=== PATIENT | male | born 1950 | race Caucasian/White ===

== ENCOUNTER 2017-03-15 19:39 | Emergency (ER) | payer OTHER ==
--- NOTE | 2017-03-15 20:25 | DIAGNOSTIC IMAGING REPORT ---
PROCEDURE: XR CHEST 1 VIEW INDICATION: Short of breath. TECHNIQUE: Portable AP view (2010 hours). COMPARISON: None. FINDINGS: Allowing for suboptimal inspiration, there is mild volume loss and parenchymal changes at the right lung base. There is a 6 mm old calcified granuloma the right mid lung. Left lung is clear. Heart and mediastinum are normal. Thorax is normal. IMPRESSION: 1. There is mild volume loss and parenchymal changes at the right lung could represent chronic scarring or acute pneumonia. 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 3. Otherwise negative chest. No evidence of congestive heart failure. 4. Findings discussed with Dr. Roger Prasad.
--- NOTE | 2017-03-15 23:18 | ED CLINICAL REPORT ---
Clinical Report - Physicians/Mid Levels [facility] [address] [place] [address] 03/15/2017 19:41 Patient: ELI HOFFMAN Time Seen: 1942; initial patient contact. Arrived- By ambulance. Historian- patient, EMS personnel and family. HISTORY OF PRESENT ILLNESS Chief Complaint: diaphoresis. At its maximum, severity described as severe. When seen in the E.D., it was gone. Modifying factors. Not worsened by anything. Not relieved by anything. This started today. It was abrupt in onset and has been constant but is gone now. Is now gone. No current or associated symptoms. (reports diaphoresis, fatigue, and generalized weakness during dinner. states he has had that for the past few weeks. recently diagnosed with CHF. Placed on lasix 40 mg and carvedilol 25 mg. states he started taking them today. EMS reports BP of 80/40s). Similar symptoms previously: Many times. Recent medical care: The patient was seen recently in a clinic. REVIEW OF SYSTEMS No fever, cough, difficulty breathing, chest pain or skin rash. No back pain, calf pain or headache. All systems otherwise negative, except as recorded above. PAST HISTORY Hyperlipidemia. Blindness. Neuropathy. Hypertension. Diabetes Mellitus. ADDITIONAL SURGERIES: Back Surgery. Ear surgery. Medications: Carvedilol Phosphate ER Oral (Capsule Extended Release 24 Hour 10 mg) 25mg, daily. Furosemide Oral (Tablet 40 mg), daily. Glipizide Oral (Tablet 5 mg), daily. Better melon gold. Lisinopril Oral (Tablet 10 mg), 2x a day. Omeprazole Oral (Tablet Delayed Release 20 mg), daily. Simvastatin Oral (Tablet 40 mg), daily. Atenolol Oral (Tablet 100 mg), daily. Allergies: None. SOCIAL HISTORY Never smoker. No alcohol use or drug use. No recent travel. Is a local resident. ADDITIONAL NOTES The nursing notes have been reviewed. PHYSICAL EXAM Vital Signs: 03/15/2017 19:44 BP: 111/58. HR: 61. RR: 15. O2 saturation: 98%. Temp: 97.7 F. Pain level now: 0/10. Blood pressure normal. Oxygen saturation normal. Appearance: Alert. No acute distress. (pleasant, cooperative, polite.). Neck: Normal inspection. Neck supple. No JVD. CVS: Normal heart rate and rhythm. Heart sounds normal. Pulses normal. Respiratory: No respiratory distress. Breath sounds normal. Chest nontender. No rales, rhonchi or wheezes. Abdomen: No visible injury. Soft and nontender. Bowel sounds normal. Skin: Skin warm and dry. Normal skin color. No rash. Normal skin turgor. Extremities: Extremities exhibit normal ROM. No lower extremity edema. LABS, X-RAYS, AND EKG EKG: No acute process. No acute ischemia. Normal EKG. Normal sinus rhythm. Rate: 60. Normal P waves. Normal JEFF. Normal QRS complex. Normal axis. Normal ST and T waves, QT and QTc. The study has been interpreted contemporaneously. The study has been independently viewed by me. The EKG appears to be a good tracing. Chest X-ray: (PROCEDURE: XR CHEST 1 VIEW INDICATION: Short of breath. TECHNIQUE: Portable AP view (2010 hours). COMPARISON: None. FINDINGS: Allowing for suboptimal inspiration, there is mild volume loss and parenchymal changes at the right lung base. There is a 6 mm old calcified granuloma the right mid lung. Left lung is clear. Heart and mediastinum are normal. Thorax is normal. IMPRESSION: 1. There is mild volume loss and parenchymal changes at the right lung could represent chronic scarring or acute pneumonia. 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 3. Otherwise negative chest. No evidence of congestive heart failure.). Laboratory Tests: UA-Culture if indicated: (MIGUEL ANGEL: 03/15/2017 20:30) ( MsgRcvd 03/15/2017 21:17) Final results Test Result Flag Units (Reference) URINE COLOR YELLOW URINE APPEARANCE CLEAR URINE GLUCOSE NEGATIVE (NEGATIVE) URINE BILIRUBIN NEGATIVE (NEGATIVE) URINE KETONE NEGATIVE (NEGATIVE) URINE SPECIFIC GRAVITY 1.010 (1.010-1.030) URINE PH 5.5 (5.0-8.0) URINE PROTEIN NEGATIVE (NEGATIVE) URINE UROBILINOGEN 0.2 EU/dL (0.2-1.0) URINE NITRITE NEGATIVE (NEGATIVE) URINE BLOOD NEGATIVE (NEGATIVE) URINE LEUK ESTERASE NEGATIVE (NEGATIVE) URINE RBC RARE rbc/hpf (0-1) URINE WBC 0-1 wbc/hpf (0-1) URINE EPITHELIAL CELLS RARE EPI/hpf (0-5) URINE BACTERIA NONE SEEN (NONE SEEN) URINE COMMENT CULT NOT INDICATED 0-1 HYALINE CASTURINE CULTURES ARE SET-UP BASED ON THE FOLLOWING CRITERIA:POSITIVE NITRITEPOSITIVE LEUKOCYTE ESTERASEGREATER THAN 10 WHITE BLOOD CELLSMODERATE (2+) OR GREATER BACTERIA CBC w Diff: (MIGUEL ANGEL: 03/15/2017 20:00) ( [facility] 03/15/2017 21:25) Final results Test Result Flag Units (Reference) WHITE BLOOD COUNT 8.6 K/uL (4.5-11.5) RED BLOOD COUNT 4.78 M/uL (4.50-5.90) HEMOGLOBIN 14.9 gm/dL (13.5-17.5) HEMATOCRIT 43.7 % (41.0-53.0) MEAN CELL VOLUME 91 fL (80-100) MEAN CORPUSCULAR HGB 31 pg (26-34) MEAN CORPUSCULAR HGB CONC 34 g/dL (31-37) RED CELL DISTRIBUTION WIDTH 12.8 % (11.6-14.8) PLATELET COUNT 92 L K/uL (150-400) NEUTROPHIL % 57.5 % (50-75) LYMPH % 33.0 % (25-40) MONO % 8.0 % (3-14) EOSINOPHIL % 1.0 % (0-4) BASOPHIL % 0.5 % (0-2) RBC MORPHOLOGY ... Platelets decreased per smear review.FEW LARGE PLATELETS PT with INR: (MIGUEL ANGEL: 03/15/2017 20:00) ( [facility] 03/15/2017 20:31) Final results Test Result Flag Units (Reference) INR 1.0 (0.8-1.2) Low Intensity Therapy: INR 1.5-2.0 PT range 18.5-23.1Mod.Intensity Therapy: INR 2.0-3.0 PT range 23.1-31.5High Intensity Therapy: INR 2.5-3.5 PT range 27.4-35.5High Intensity Therapy 2: INR 3.0-4.0 PT range 31.5-39.3 Troponin-I: (MIGUEL ANGEL: 03/15/2017 22:00) ( [facility] 03/15/[facility] 22:30) Final results Test Result Flag Units (Reference) TROPONIN I <0.05 L ng/mL (0.00-1.5) TROPONIN REFERENCE RANGE:<0.1 NEGATIVE0.1-1.5 INDETERMINANT>1.5 POSITIVE BNP: (MIGUEL ANGEL: 03/15/2017 20:00) ( IlgRcvd 03/15/2017 20:34) Final results Test Result Flag Units (Reference) B-TYPE NATRIURETIC PEPTIDE 122 H pg/ml (5-100) CMP: (MIGUEL ANGEL: 03/15/2017 20:00) ( [facility] 03/15/2017 20:24) Final results Test Result Flag Units (Reference) GLUCOSE 229 H mg/dL (70-110) BUN 30 H mg/dL (7-18) CREATININE 2.1 H mg/dL (0.6-1.3) Estimated GFR 33.55 mL/min Estimated GFR- 40.66 mL/min Note: Persistent reduction over 3 months in eGFR<60 mL/min/1.73 m2 defines CKD. Patients with eGFR values>=60 mL/min/1.73 m2 may also have CKD if evidence ofpersistent proteinuria. Additional information may be foundat www.kidney.org. SODIUM 140 mmol/L (136-145) POTASSIUM 4.7 mmol/L (3.5-5.1) CHLORIDE 107 mmol/L (98-107) CARBON DIOXIDE 26 mmol/L (21-32) CALCIUM 8.3 L mg/dL (8.5-10.1) TOTAL PROTEIN 5.8 L g/dL (6.4-8.2) ALBUMIN 3.1 L g/dL (3.3-5.0) BILIRUBIN, TOTAL 0.4 mg/dL (0.0-1.0) ALKALINE PHOSPHATASE 64 U/L (46-116) AST (SGOT) 16 U/L (15-37) ALT (SGPT) 33 U/L (12-78) TROPONIN I <0.05 L ng/mL (0.00-1.5) TROPONIN REFERENCE RANGE:<0.1 NEGATIVE0.1-1.5 INDETERMINANT>1.5 POSITIVE . PROGRESS AND PROCEDURES Course of Care: patient not a very reliable historian. after reviewing results states he also had a productive cough. will treat for pneumonia. 2nd trop pending. 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 States he does not think they work there anymore. 23:13 03/15/17. Pt accepted from Dr. Prasad, H&P confirmed by myself. BP much better, not hypoxic, and 2nd Troponin neg. Pt is appropriate for outpt Tx. Disposition: Discharged home in good and improved condition. Condition: good. CLINICAL IMPRESSION Bacterial and lobar pneumonia. Vital signs recorded and reviewed; empiric antibiotics given in the ED and prescribed. No hypoxemia, respiratory failure or sepsis. INSTRUCTIONS Rest at home today and tomorrow. Your Current Medications: STOP TAKING THE FOLLOWING MEDICATIONS: Carvedilol Phosphate ER Oral : Capsule Extended Release 24 Hour 10 mg, 25mg daily. Furosemide Oral : Tablet 40 mg, daily. CONTINUE TAKING THE FOLLOWING MEDICATIONS: Atenolol Oral : Tablet 100 mg, daily. Better melon gold*. Glipizide Oral : Tablet 5 mg, daily. Lisinopril Oral : Tablet 10 mg, 2x a day. Omeprazole Oral : Tablet Delayed Release 20 mg, daily. Simvastatin Oral : Tablet 40 mg, daily. Prescription Medications: Clarithromycin 500 mg tablets: take 1 tablet orally every 12 hours for 7 days. No refills. Follow-up: Follow up with your doctor in about three days. Call for an appointment. Blood pressure screening was not performed during this visit because the patient has an active diagnosis of hypertension. (Electronically signed by River Chappell Dr. 03/16/2017 7:56)
--- NOTE | 2017-03-15 23:18 | ED NURSING NOTES ---
Clinical Report - Nurses [facility] [address] [place] [address] 03/15/2017 19:41 [id number] Triage time 19:44 Mar 15 2017. Acuity: LEVEL 3. Chief Complaint: DIZZINESS and WEAKNESS. Alert. No acute distress. EDGARDO COMA SCORE: Edgardo Coma Scale: 15- eyes open spontaneously (4); best verbal response- oriented x 4 (5); best motor response- obeys commands (6). --19:57 Ashanti Mendez R.N. 19:44 03/15/17. BP: 111/58. HR: 61. RR: 15. O2 saturation: 98%. Temp: 97.7 F. Pain level now: 0/10. --19:57 Ashanti Mendez R.N. Weight: 99.7 kg stated. Height/Length: 69 inches Per Patient. BMI: 32.5. --19:54 Ashanti Mendez R.N. Medications Atenolol Oral (Tablet 100 mg), daily. --19:48 Ashanti Mendez R.N. Simvastatin Oral (Tablet 40 mg), daily. --19:48 Ashanti Mendez R.N. Omeprazole Oral (Tablet Delayed Release 20 mg), daily. --19:49 Ashanti Mendez R.N. Lisinopril Oral (Tablet 10 mg), 2x a day. --19:49 Ashanti Mendez R.N. Better melon gold. --19:49 Ashanti Mendez R.N. Glipizide Oral (Tablet 5 mg), daily. --19:50 Ashanti Mendez R.N. Furosemide Oral (Tablet 40 mg), daily. --19:50 Ashanti Mendez R.N. Carvedilol Phosphate ER Oral (Capsule Extended Release 24 Hour 10 mg) 25mg, daily. --19:51 Ashanti Mendez R.N. Allergies None. --19:51 Ashanti Mendez R.N. History Arrived by private vehicle. Historian: patient. Accompanied by family. This started just prior to arrival. ( diaphoretic, blurry vision). Treatment OFFICE MANAGER RECEPTIONIST: EMS treatment OFFICE MANAGER RECEPTIONIST verbally communicated. Pre-hospital 12-lead EKG. IV fluid given (500 mL bolus). BP: 80 / 40. HR: 60. PAST MEDICAL HX: Immunizations: status is unknown. SOCIAL HX: Never smoker. No alcohol use or drug use. No infectious disease exposure. SELF HARM ASSESSMENT: A self harm assessment was performed. The patient answered "no" to the question "Do you have thoughts of harming or killing yourself?" and "Have you recently had thoughts about harming or killing others?". FALL RISK ASSESSMENT: Fall risk assessment completed. No fall risk identified. NUTRITIONAL RISK ASSESSMENT: The nutritional risk assessment revealed no deficiencies. FUNCTIONAL ASSESSMENT: Functional assessment: no impairments noted. LEARNING NEEDS ASSESSMENT: The learning needs assessment revealed no barriers. ABUSE ASSESSMENT: Abuse assessment: The patient was asked "Do you feel safe in your home?". SKIN INTEGRITY ASSESSMENT: Skin integrity risk assessment completed. No skin integrity risk identified. --19:57 Ashanti Mendez R.N. PROBLEMS: Hyperlipidemia. Blindness. Neuropathy. Hypertension. Diabetes Mellitus. --19:53 Ashanti Mendez R.N. ADDITIONAL SURGERIES: Back Surgery. Ear surgery. --19:53 Ashanti Mendez R.N. Interventions ID band on patient. To room. --19:57 Ashanti Mendez R.N. 19:45 03/15/2017 Site #1 started prior to arrival by EMS via IV in the left hand with an 18g angiocath. --19:45 Ahsanti Mendez R.N. PHYSICAL ASSESSMENT To room via stretcher. GENERAL / NEURO / PSYCH: Alert. Oriented X 4. Appears in no acute distress. HEENT: No facial asymmetry noted. Mucous membranes are pink. RESPIRATORY: Respirations not labored. Chest nontender. CVS: Capillary refill less than 2 seconds. GI / : Abdomen soft and nontender. SKIN: Skin is warm and dry. --19:58 Ashanti Mendez R.N. NURSING PROGRESS NOTES Oxygen administered by nasal cannula at 2 liters. shelter monitor, pulse oximeter and NIBP monitor placed on patient; youth nutritional monitor- Lead II; monitor alarms on. Patient gowned. Head of bed elevated. Patient identifiers checked. Call light placed in reach. Side rails up x 1. Bed placed in lowest position. Brakes of bed on. --19:59 Ashanti Mendez R.N. Patient ID band checked for patient name and birthdate. Blood samples drawn by nurse ; labeled in presence of the patient and sent to lab: rainbow set. --20:00 Ashanti Mendez R.N. EKG time: (2003). EKG was ordered, performed by a tech and shown to the ED physician. --20:06 Reed Martinez, ER Foreign Service Officer Patient ID band checked for patient name and birthdate: patient confirmed. Instructions provided to collect clean catch urine and patient verbalized understanding. Clean catch urine collected with return of yellow-colored clear urine; sample sent to lab for urinalysis. Specimen labeled in the presence of the patient. --20:42 Ashanti Mendez R.N. 21:26 03/15/2017 Started 2 gm of Ceftriaxone IVPB in bag #1 50 mL; at 150 mL/hr over 20 minute(s) via site #1 via IV pump. Allergies verified and confirmed 5 rights. IV patency established. IV site checked: no pain, redness, or swelling. IV flushed thoroughly pre- and post-medication administration. --21:28 James Luna R.N. The patient is calm and resting quietly. RESPIRATORY: No respiratory distress. SKIN: Skin is warm and dry. Skin color within normal limits. --21:32 James Luna R.N. 21:31 03/15/17. BP: 100/55. HR: 59. RR: 16. O2 saturation: 95% on nasal cannula at 2 liters/minute. --21:32 James Luna R.N. 21:48 03/15/2017 Ceftriaxone IVPB Discontinued: bag #1 infused. Total amount infused: 50 mL. IV patency established. IV site checked: no pain, redness, or swelling. IV flushed thoroughly. --21:48 Ashanti Mendez R.N. 22:01 03/15/2017 Started 500 mg of Azithromycin IVPB in bag #1 250 mL; at 250 mg/hr over 1 hour(s) via site #1 via IV pump. Allergies verified and confirmed 5 rights. IV patency established. IV site checked: no pain, redness, or swelling. IV flushed thoroughly pre- and post-medication administration. --22:01 Ashanti Mendez R.N. The patient is calm and resting quietly. Overall patient status is the same- he states feels the same. RESPIRATORY: Denies difficulty breathing. No respiratory distress. SKIN: Skin is warm and dry. Skin color within normal limits. --22:02 Ashanti Mendez R.N. 21:48 03/15/17. BP: 92/52. HR: 58. RR: 17. O2 saturation: 96%. Pain level now: 0/10. --22:02 Ashanti Mendez R.N. DISPOSITION / DISCHARGE 23:28 03/15/2017 Azithromycin IVPB Discontinued: bag #1 infused upon discharge. Total amount infused: 250 mL. IV patency established. IV site checked: no pain, redness, or swelling. IV flushed thoroughly. --23:43 Ashanti Mendez R.N. 23:29 03/15/2017 Site #1 removed upon discharge. Bandage applied. --23:44 Ashanti Mendez R.N. Departure time: 23:30 Mar 15 2017. Condition at departure: improved. No learning barriers present. Discharge instructions provided and reviewed with the patient. Reviewed medication(s) side effects, precautions, dosing and course information. Prescription(s) given to the patient. Reviewed referral to a primary care physician for followup. Patient verbalized understanding. Written instructions provided in Lebanese. The patient was discharged home and accompanied by spouse. He left the Emergency Department ambulatory and via private vehicle. Spouse driving. FALL RISK ASSESSMENT: Fall risk assessment completed. No fall risk identified. --23:45 Ashanti Mendez R.N. 23:41 03/15/17. BP: 111/57. HR: 85. RR: 16. O2 saturation: 94%. Pain level now: 0/10. --23:45 Ashanti Mendez R.N. Locked/Released at 03/15/2017 23:46 by Ashanti Mendez R.N.
--- NOTE | 2017-03-15 23:18 | ED ORDER SUMMARY ---
..... Patient: ELI HOFFMAN OrderSheet [facility] VisitID: [id number] [place] [address] 66y, M Registration Date/Time: 03/15/2017 ORDER SHEET Weight: 99.7 kg (stated) Allergies: None GENERAL ORDERS: Chest 1V Urgent (19:52 03/15/2017 Kin Dias) (20:05 CH[facility]ty ER [facility]) Loan Interviewer (Continuous) (hypotension) (19:52 03/15/2017 Kin Dias) (20:05 CH[facility]ty ER [facility]) CBC w Diff Urgent (19:53 03/15/2017 Kin Dias) (Ack 20:06 CH[facility]ty ER [facility]) (20:07 CH[facility]ty ER [facility] [place]) CMP Urgent (19:53 03/15/2017 Kin Dias) (Ack 20:06 CH[facility]ty ER [facility] [place]) (20:07 CH[facility]ty ER [facility] [place]) UA-Culture if indicated Urgent (19:53 03/15/2017 Kin Dias) (Ack 20:06 CH[facility]ty ER [facility] [place]) (20:41 KKnebel R.N.) PT with INR Urgent (19:53 03/15/2017 Kin Dias) (Ack 20:06 CH[facility]ty ER [facility] [place]) (20:07 CH[facility]ty ER [facility] [place]) Troponin-I Urgent (19:53 03/15/2017 Kin Dias) (Ack 20:06 CHagerty ER [place]) (20:07 CHagerty ER [place]) BNP Urgent (19:53 03/15/2017 Kin Dias) (Ack 20:06 CHagerty ER [facility] [place]) (20:07 CHagerty ER [facility] [place]) Pulse oximeter (19:53 03/15/2017 Kin Dias) (20:05 CHagerty ER [place]) EKG - ER Stat (19:53 03/15/2017 Kin Dias) (20:05 CHagerty ER [place]) Troponin-I (redraw at 22:00) Urgent (21:16 03/15/2017 Kin Dias) (Ack 21:27 CHagerty ER [facility] [place]) (22:20 CHagerty ER [place]) MEDICATION ORDERS: IV FLUIDS: IV Saline Lock (19:53 03/15/2017 Kin Dias) (20:10 Saadia R.N.) Ceftriaxone IV 2 gm/50mL (NOW) (21:02 03/15/2017 Kin Dias) (Ack 21:23 JQuivey R.N.) (21:28 JQuivey R.N.) Azithromycin IV 500 mg/250 mL (NOW) (21:02 03/15/2017 Kin Dias) (22:01 Saadia R.N.) ORDER SHEET NOTES: [Electronically signed by Ashanti Mendez R.N. (23:46 03/15/2017)] [Electronically signed by River Chappell Dr. (07:56 03/16/2017)] [Electronically locked/signed by Ashanti Mendez R.N. (23:46 03/15/2017)]
--- NOTE | 2017-03-15 23:18 | ED NURSING NOTES ---
Clinical Report - Nurses [address] [place] [address] 03/15/2017 19:41 [id number] Triage time 19:44 Mar 15 2017. Acuity: LEVEL 3. Chief Complaint: DIZZINESS and WEAKNESS. Alert. No acute distress. EDGARDO COMA SCORE: Edgardo Coma Scale: 15- eyes open spontaneously (4); best verbal response- oriented x 4 (5); best motor response- obeys commands (6). --19:57 Ashanti Mendez R.N. 19:44 03/15/17. BP: 111/58. HR: 61. RR: 15. O2 saturation: 98%. Temp: 97.7 F. Pain level now: 0/10. --19:57 Ashanti Mendez R.N. Weight: 99.7 kg stated. Height/Length: 69 inches Per Patient. BMI: 32.5. --19:54 Ashanti Mendez R.N. Medications Atenolol Oral (Tablet 100 mg), daily. --19:48 Ashanti Mendez R.N. Simvastatin Oral (Tablet 40 mg), daily. --19:48 Ashanti Mendez R.N. Omeprazole Oral (Tablet Delayed Release 20 mg), daily. --19:49 Ashanti Mendez R.N. Lisinopril Oral (Tablet 10 mg), 2x a day. --19:49 Ashanti Mendez R.N. Better melon gold. --19:49 Ashanti Mendez R.N. Glipizide Oral (Tablet 5 mg), daily. --19:50 Ashanti Mendez R.N. Furosemide Oral (Tablet 40 mg), daily. --19:50 Ashanti Mendez R.N. Carvedilol Phosphate ER Oral (Capsule Extended Release 24 Hour 10 mg) 25mg, daily. --19:51 Ashanti Mendez R.N. Allergies None. --19:51 Ashanti Mendez R.N. History Arrived by private vehicle. Historian: patient. Accompanied by family. This started just prior to arrival. ( diaphoretic, blurry vision). Treatment PROFESSOR OF GENETICS: EMS treatment PROFESSOR OF GENETICS verbally communicated. Pre-hospital 12-lead EKG. IV fluid given (500 mL bolus). BP: 80 / 40. HR: 60. PAST MEDICAL HX: Immunizations: status is unknown. SOCIAL HX: Never smoker. No alcohol use or drug use. No infectious disease exposure. SELF HARM ASSESSMENT: A self harm assessment was performed. The patient answered "no" to the question "Do you have thoughts of harming or killing yourself?" and "Have you recently had thoughts about harming or killing others?". FALL RISK ASSESSMENT: Fall risk assessment completed. No fall risk identified. NUTRITIONAL RISK ASSESSMENT: The nutritional risk assessment revealed no deficiencies. FUNCTIONAL ASSESSMENT: Functional assessment: no impairments noted. LEARNING NEEDS ASSESSMENT: The learning needs assessment revealed no barriers. ABUSE ASSESSMENT: Abuse assessment: The patient was asked "Do you feel safe in your home?". SKIN INTEGRITY ASSESSMENT: Skin integrity risk assessment completed. No skin integrity risk identified. --19:57 Ashanti Mendez R.N. PROBLEMS: Hyperlipidemia. Blindness. Neuropathy. Hypertension. Diabetes Mellitus. --19:53 Ashanti Mendez R.N. ADDITIONAL SURGERIES: Back Surgery. Ear surgery. --19:53 Ashanti Mendez R.N. Interventions ID band on patient. To room. --19:57 Ashanti Mendez R.N. 19:45 03/15/2017 Site #1 started prior to arrival by EMS via IV in the left hand with an 18g angiocath. --19:45 Ashanti Mendez R.N. PHYSICAL ASSESSMENT To room via stretcher. GENERAL / NEURO / PSYCH: Alert. Oriented X 4. Appears in no acute distress. HEENT: No facial asymmetry noted. Mucous membranes are pink. RESPIRATORY: Respirations not labored. Chest nontender. CVS: Capillary refill less than 2 seconds. GI / : Abdomen soft and nontender. SKIN: Skin is warm and dry. --19:58 Ashanti Mendez R.N. NURSING PROGRESS NOTES Oxygen administered by nasal cannula at 2 liters. window/distribution clerk, pulse oximeter and NIBP monitor placed on patient; material manager- Lead II; monitor alarms on. Patient gowned. Head of bed elevated. Patient identifiers checked. Call light placed in reach. Side rails up x 1. Bed placed in lowest position. Brakes of bed on. --19:59 Ashanti Mendez R.N. Patient ID band checked for patient name and birthdate. Blood samples drawn by nurse ; labeled in presence of the patient and sent to lab: rainbow set. --20:00 Ashanti Mendez R.N. EKG time: (2003). EKG was ordered, performed by a tech and shown to the ED physician. --20:06 Reed Martinez, ER Interactive Graphic Designer Patient ID band checked for patient name and birthdate: patient confirmed. Instructions provided to collect clean catch urine and patient verbalized understanding. Clean catch urine collected with return of yellow-colored clear urine; sample sent to lab for urinalysis. Specimen labeled in the presence of the patient. --20:42 Ashanti Mendez R.N. 21:26 03/15/2017 Started 2 gm of Ceftriaxone IVPB in bag #1 50 mL; at 150 mL/hr over 20 minute(s) via site #1 via IV pump. Allergies verified and confirmed 5 rights. IV patency established. IV site checked: no pain, redness, or swelling. IV flushed thoroughly pre- and post-medication administration. --21:28 James Luna R.N. The patient is calm and resting quietly. RESPIRATORY: No respiratory distress. SKIN: Skin is warm and dry. Skin color within normal limits. --21:32 James Luna R.N. 21:31 03/15/17. BP: 100/55. HR: 59. RR: 16. O2 saturation: 95% on nasal cannula at 2 liters/minute. --21:32 James Luna R.N. 21:48 03/15/2017 Ceftriaxone IVPB Discontinued: bag #1 infused. Total amount infused: 50 mL. IV patency established. IV site checked: no pain, redness, or swelling. IV flushed thoroughly. --21:48 Ashanti Mendez R.N. 22:01 03/15/2017 Started 500 mg of Azithromycin IVPB in bag #1 250 mL; at 250 mg/hr over 1 hour(s) via site #1 via IV pump. Allergies verified and confirmed 5 rights. IV patency established. IV site checked: no pain, redness, or swelling. IV flushed thoroughly pre- and post-medication administration. --22:01 Ashanti Mendez R.N. The patient is calm and resting quietly. Overall patient status is the same- he states feels the same. RESPIRATORY: Denies difficulty breathing. No respiratory distress. SKIN: Skin is warm and dry. Skin color within normal limits. --22:02 Ashanti Mendez R.N. 21:48 03/15/17. BP: 92/52. HR: 58. RR: 17. O2 saturation: 96%. Pain level now: 0/10. --22:02 Ashanti Mendez R.N. DISPOSITION / DISCHARGE 23:28 03/15/2017 Azithromycin IVPB Discontinued: bag #1 infused upon discharge. Total amount infused: 250 mL. IV patency established. IV site checked: no pain, redness, or swelling. IV flushed thoroughly. --23:43 Ashanti Mendez R.N. 23:29 03/15/2017 Site #1 removed upon discharge. Bandage applied. --23:44 Ashanti Mendez R.N. Departure time: 23:30 Mar 15 2017. Condition at departure: improved. No learning barriers present. Discharge instructions provided and reviewed with the patient. Reviewed medication(s) side effects, precautions, dosing and course information. Prescription(s) given to the patient. Reviewed referral to a primary care physician for followup. Patient verbalized understanding. Written instructions provided in Dominican. The patient was discharged home and accompanied by spouse. He left the Emergency Department ambulatory and via private vehicle. Spouse driving. FALL RISK ASSESSMENT: Fall risk assessment completed. No fall risk identified. --23:45 Ashanti Mendez R.N. 23:41 03/15/17. BP: 111/57. HR: 85. RR: 16. O2 saturation: 94%. Pain level now: 0/10. --23:45 Ashanti Mendez R.N. Locked/Released at 03/15/2017 23:46 by Ashanti Mendez R.N.
--- NOTE | 2017-03-15 23:18 | ED ORDER SUMMARY ---
..... Patient: ELI HOFFMAN OrderSheet [facility] VisitID: [id number] [place] [address] 66y, M Registration Date/Time: 03/15/2017 ORDER SHEET Weight: 99.7 kg (stated) Allergies: None GENERAL ORDERS: Chest 1V Urgent (19:52 03/15/2017 Kin Dias) (20:05 CHagerty ER Rn Internal Medicine) Welfare Specialist (Continuous) (hypotension) (19:52 03/15/2017 Kin Dias) (20:05 CHagerty ER Rn Internal Medicine) CBC w Diff Urgent (19:53 03/15/2017 Kin Dias) (Ack 20:06 CHagerty ER Rn Internal Medicine) (20:07 CHagerty ER Rn Internal Medicine) CMP Urgent (19:53 03/15/2017 Kin Dias) (Ack 20:06 CHagerty ER Rn Internal Medicine) (20:07 CHagerty ER Rn Internal Medicine) UA-Culture if indicated Urgent (19:53 03/15/2017 Kin Dias) (Ack 20:06 CHagerty ER Rn Internal Medicine) (20:41 KKnebel R.N.) PT with INR Urgent (19:53 03/15/2017 Kin Dias) (Ack 20:06 CHagerty ER Rn Internal Medicine) (20:07 CHagerty ER Rn Internal Medicine) Troponin-I Urgent (19:53 03/15/2017 Kin Dias) (Ack 20:06 CHagerty ER Rn Internal Medicine) (20:07 CHagerty ER Rn Internal Medicine) BNP Urgent (19:53 03/15/2017 Kin Dias) (Ack 20:06 CHagerty ER Rn Internal Medicine) (20:07 CHagerty ER Rn Internal Medicine) Pulse oximeter (19:53 03/15/2017 Kin Dias) (20:05 CHagerty ER Rn Internal Medicine) EKG - ER Stat (19:53 03/15/2017 Kin Dias) (20:05 CHagerty ER Rn Internal Medicine) Troponin-I (redraw at 22:00) Urgent (21:16 03/15/2017 Kin Dias) (Ack 21:27 CHagerty ER Rn Internal Medicine) (22:20 CHagerty ER Rn Internal Medicine) MEDICATION ORDERS: IV FLUIDS: IV Saline Lock (19:53 03/15/2017 Kin Dias) (20:10 Saadia R.N.) Ceftriaxone IV 2 gm/50mL (NOW) (21:02 03/15/2017 Kin Dias) (Ack 21:23 JQuivey R.N.) (21:28 JQuivey R.N.) Azithromycin IV 500 mg/250 mL (NOW) (21:02 03/15/2017 Kin Dias) (22:01 Saadia R.N.) ORDER SHEET NOTES: [Electronically signed by Ashanti Mendez R.N. (23:46 03/15/2017)] [Electronically signed by River Chappell Dr. (07:56 03/16/2017)] [Electronically locked/signed by Ashanti Mendez R.N. (23:46 03/15/2017)]
--- NOTE | 2017-03-15 23:18 | ED CLINICAL REPORT ---
Clinical Report - Physicians/Mid Levels [facility] [address] [place] [address] 03/15/2017 19:41 Patient: ELI HOFFMAN Time Seen: 1940; initial patient contact. Arrived- By ambulance. Historian- patient, EMS personnel and family. HISTORY OF PRESENT ILLNESS Chief Complaint: diaphoresis. At its maximum, severity described as severe. When seen in the E.D., it was gone. Modifying factors. Not worsened by anything. Not relieved by anything. This started today. It was abrupt in onset and has been constant but is gone now. Is now gone. No current or associated symptoms. (reports diaphoresis, fatigue, and generalized weakness during dinner. states he has had that for the past few weeks. recently diagnosed with CHF. Placed on lasix 40 mg and carvedilol 25 mg. states he started taking them today. EMS reports BP of 80/40s). Similar symptoms previously: Many times. Recent medical care: The patient was seen recently in a clinic. REVIEW OF SYSTEMS No fever, cough, difficulty breathing, chest pain or skin rash. No back pain, calf pain or headache. All systems otherwise negative, except as recorded above. PAST HISTORY Hyperlipidemia. Blindness. Neuropathy. Hypertension. Diabetes Mellitus. ADDITIONAL SURGERIES: Back Surgery. Ear surgery. Medications: Carvedilol Phosphate ER Oral (Capsule Extended Release 24 Hour 10 mg) 25mg, daily. Furosemide Oral (Tablet 40 mg), daily. Glipizide Oral (Tablet 5 mg), daily. Better melon gold. Lisinopril Oral (Tablet 10 mg), 2x a day. Omeprazole Oral (Tablet Delayed Release 20 mg), daily. Simvastatin Oral (Tablet 40 mg), daily. Atenolol Oral (Tablet 100 mg), daily. Allergies: None. SOCIAL HISTORY Never smoker. No alcohol use or drug use. No recent travel. Is a local resident. ADDITIONAL NOTES The nursing notes have been reviewed. PHYSICAL EXAM Vital Signs: 03/15/2017 19:44 BP: 111/58. HR: 61. RR: 15. O2 saturation: 98%. Temp: 97.7 F. Pain level now: 0/10. Blood pressure normal. Oxygen saturation normal. Appearance: Alert. No acute distress. (pleasant, cooperative, polite.). Neck: Normal inspection. Neck supple. No JVD. CVS: Normal heart rate and rhythm. Heart sounds normal. Pulses normal. Respiratory: No respiratory distress. Breath sounds normal. Chest nontender. No rales, rhonchi or wheezes. Abdomen: No visible injury. Soft and nontender. Bowel sounds normal. Skin: Skin warm and dry. Normal skin color. No rash. Normal skin turgor. Extremities: Extremities exhibit normal ROM. No lower extremity edema. LABS, X-RAYS, AND EKG EKG: No acute process. No acute ischemia. Normal EKG. Normal sinus rhythm. Rate: 60. Normal P waves. Normal JEFF. Normal QRS complex. Normal axis. Normal ST and T waves, QT and QTc. The study has been interpreted contemporaneously. The study has been independently viewed by me. The EKG appears to be a good tracing. Chest X-ray: (PROCEDURE: XR CHEST 1 VIEW INDICATION: Short of breath. TECHNIQUE: Portable AP view (2010 hours). COMPARISON: None. FINDINGS: Allowing for suboptimal inspiration, there is mild volume loss and parenchymal changes at the right lung base. There is a 6 mm old calcified granuloma the right mid lung. Left lung is clear. Heart and mediastinum are normal. Thorax is normal. IMPRESSION: 1. There is mild volume loss and parenchymal changes at the right lung could represent chronic scarring or acute pneumonia. 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 3. Otherwise negative chest. No evidence of congestive heart failure.). Laboratory Tests: UA-Culture if indicated: (MIGUEL ANGEL: 03/15/2017 20:30) ( MsgRcvd 03/15/2017 21:17) Final results Test Result Flag Units (Reference) URINE COLOR YELLOW URINE APPEARANCE CLEAR URINE GLUCOSE NEGATIVE (NEGATIVE) URINE BILIRUBIN NEGATIVE (NEGATIVE) URINE KETONE NEGATIVE (NEGATIVE) URINE SPECIFIC GRAVITY 1.010 (1.010-1.030) URINE PH 5.5 (5.0-8.0) URINE PROTEIN NEGATIVE (NEGATIVE) URINE UROBILINOGEN 0.2 EU/dL (0.2-1.0) URINE NITRITE NEGATIVE (NEGATIVE) URINE BLOOD NEGATIVE (NEGATIVE) URINE LEUK ESTERASE NEGATIVE (NEGATIVE) URINE RBC RARE rbc/hpf (0-1) URINE WBC 0-1 wbc/hpf (0-1) URINE EPITHELIAL CELLS RARE EPI/hpf (0-5) URINE BACTERIA NONE SEEN (NONE SEEN) URINE COMMENT CULT NOT INDICATED 0-1 HYALINE CASTURINE CULTURES ARE SET-UP BASED ON THE FOLLOWING CRITERIA:POSITIVE NITRITEPOSITIVE LEUKOCYTE ESTERASEGREATER THAN 10 WHITE BLOOD CELLSMODERATE (2+) OR GREATER BACTERIA CBC w Diff: (MIGUEL ANGEL: 03/15/2017 20:00) ( [facility] 03/15/2017 21:25) Final results Test Result Flag Units (Reference) WHITE BLOOD COUNT 8.6 K/uL (4.5-11.5) RED BLOOD COUNT 4.78 M/uL (4.50-5.90) HEMOGLOBIN 14.9 gm/dL (13.5-17.5) HEMATOCRIT 43.7 % (41.0-53.0) MEAN CELL VOLUME 91 fL (80-100) MEAN CORPUSCULAR HGB 31 pg (26-34) MEAN CORPUSCULAR HGB CONC 34 g/dL (31-37) RED CELL DISTRIBUTION WIDTH 12.8 % (11.6-14.8) PLATELET COUNT 92 L K/uL (150-400) NEUTROPHIL % 57.5 % (50-75) LYMPH % 33.0 % (25-40) MONO % 8.0 % (3-14) EOSINOPHIL % 1.0 % (0-4) BASOPHIL % 0.5 % (0-2) RBC MORPHOLOGY ... Platelets decreased per smear review.FEW LARGE PLATELETS PT with INR: (MIGUEL ANGEL: 03/15/2017 20:00) ( [facility] 03/15/2017 20:31) Final results Test Result Flag Units (Reference) INR 1.0 (0.8-1.2) Low Intensity Therapy: INR 1.5-2.0 PT range 18.5-23.1Mod.Intensity Therapy: INR 2.0-3.0 PT range 23.1-31.5High Intensity Therapy: INR 2.5-3.5 PT range 27.4-35.5High Intensity Therapy 2: INR 3.0-4.0 PT range 31.5-39.3 Troponin-I: (MIGUEL ANGEL: 03/15/2017 22:00) ( [facility] [place] 03/15/[place] 22:30) Final results Test Result Flag Units (Reference) TROPONIN I <0.05 L ng/mL (0.00-1.5) TROPONIN REFERENCE RANGE:<0.1 NEGATIVE0.1-1.5 INDETERMINANT>1.5 POSITIVE BNP: (MIGUEL ANGEL: 03/15/2017 20:00) ( WagRcvd 03/15/2017 20:34) Final results Test Result Flag Units (Reference) B-TYPE NATRIURETIC PEPTIDE 122 H pg/ml (5-100) CMP: (MIGUEL ANGEL: 03/15/2017 20:00) ( [facility] 03/15/2017 20:24) Final results Test Result Flag Units (Reference) GLUCOSE 229 H mg/dL (70-110) BUN 30 H mg/dL (7-18) CREATININE 2.1 H mg/dL (0.6-1.3) Estimated GFR 33.55 mL/min Estimated GFR- 40.66 mL/min Note: Persistent reduction over 3 months in eGFR<60 mL/min/1.73 m2 defines CKD. Patients with eGFR values>=60 mL/min/1.73 m2 may also have CKD if evidence ofpersistent proteinuria. Additional information may be foundat www.kidney.org. SODIUM 140 mmol/L (136-145) POTASSIUM 4.7 mmol/L (3.5-5.1) CHLORIDE 107 mmol/L (98-107) CARBON DIOXIDE 26 mmol/L (21-32) CALCIUM 8.3 L mg/dL (8.5-10.1) TOTAL PROTEIN 5.8 L g/dL (6.4-8.2) ALBUMIN 3.1 L g/dL (3.3-5.0) BILIRUBIN, TOTAL 0.4 mg/dL (0.0-1.0) ALKALINE PHOSPHATASE 64 U/L (46-116) AST (SGOT) 16 U/L (15-37) ALT (SGPT) 33 U/L (12-78) TROPONIN I <0.05 L ng/mL (0.00-1.5) TROPONIN REFERENCE RANGE:<0.1 NEGATIVE0.1-1.5 INDETERMINANT>1.5 POSITIVE . PROGRESS AND PROCEDURES Course of Care: patient not a very reliable historian. after reviewing results states he also had a productive cough. will treat for pneumonia. 2nd trop pending. 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 States he does not think they work there anymore. 23:13 03/15/17. Pt accepted from Dr. Prasad, H&P confirmed by myself. BP much better, not hypoxic, and 2nd Troponin neg. Pt is appropriate for outpt Tx. Disposition: Discharged home in good and improved condition. Condition: good. CLINICAL IMPRESSION Bacterial and lobar pneumonia. Vital signs recorded and reviewed; empiric antibiotics given in the ED and prescribed. No hypoxemia, respiratory failure or sepsis. INSTRUCTIONS Rest at home today and tomorrow. Your Current Medications: STOP TAKING THE FOLLOWING MEDICATIONS: Carvedilol Phosphate ER Oral : Capsule Extended Release 24 Hour 10 mg, 25mg daily. Furosemide Oral : Tablet 40 mg, daily. CONTINUE TAKING THE FOLLOWING MEDICATIONS: Atenolol Oral : Tablet 100 mg, daily. Better melon gold*. Glipizide Oral : Tablet 5 mg, daily. Lisinopril Oral : Tablet 10 mg, 2x a day. Omeprazole Oral : Tablet Delayed Release 20 mg, daily. Simvastatin Oral : Tablet 40 mg, daily. Prescription Medications: Clarithromycin 500 mg tablets: take 1 tablet orally every 12 hours for 7 days. No refills. Follow-up: Follow up with your doctor in about three days. Call for an appointment. Blood pressure screening was not performed during this visit because the patient has an active diagnosis of hypertension. (Electronically signed by River Chappell Dr. 03/16/2017 7:56)
--- NOTE | 2017-03-16 07:57 | ED MAR SUMMARY ---
..... Medication Administration Record [facility] [address] [place] [address] Patient: ELI HOFFMAN Visit ID: [id number] 66y, M Weight: 99.7 kg Height/Length: 69 in BMI: 32.5 ALLERGIES: None Start 21:26 03/15/2017 James Luna R.N., Stop 21:48 03/15/2017 Ashanti Mendez R.N. Medication Administered: CEFTRIAXONE [IVPB], Dose: 2 gm IVPB over 20 minute(s), Rate: 150 mL/hr, Dispensed: 50 mL bag, Site: #1 left hand. Medication Ordered: Ceftriaxone IV 2 gm/50mL (NOW). Start 22:01 03/15/2017 Ashanti Mendez R.N., Stop 23:28 03/15/2017 Ashanti Mendez R.N. Medication Administered: AZITHROMYCIN [IVPB], Dose: 500 mg IVPB over 1 hour(s), Rate: 250 mg/hr, Dispensed: 250 mL bag, Site: #1 left hand. Medication Ordered: Azithromycin IV 500 mg/250 mL (NOW).
--- NOTE | 2017-03-16 07:57 | ED MED RECONCILIATION SUMMARY ---
Patient: ELI HOFFMAN Medication Reconciliation Report [facility] VisitID: [id number] [address] [place] [address] 66y, M Registration Date/Time: 03/15/2017 Weight: 99.7 kg Height/Length: 69 in. BMI: 32.5 ALLERGIES: None The patient's Home Medications are listed below: STOP TAKING THE FOLLOWING MEDICATIONS: Carvedilol Phosphate ER Oral (10 mg) 25mg, daily Furosemide Oral (40 mg), daily CONTINUE TAKING THE FOLLOWING MEDICATIONS: Atenolol Oral (100 mg), daily Better melon gold Glipizide Oral (5 mg), daily Lisinopril Oral (10 mg), 2x a day Omeprazole Oral (20 mg), daily Simvastatin Oral (40 mg), daily The source(s) of the original Home Medication information: Not obtained. The following Medications were given to the patient in the Emergency Department: Ceftriaxone [IVPB] IVPB bolus 0, then 2 gm 150 mL/hr, administered: 03/15/2017 9:26:00 PM Azithromycin [IVPB] IVPB bolus 0, then 500 mg 250 mg/hr, administered: 03/15/2017 10:01:00 PM The following Medications were prescribed to the patient: Clarithromycin 500 mg tablets: take 1 tablet orally every 12 hours for 7 days. No refills. -- River Chappell Dr.
--- NOTE | 2017-03-16 07:57 | ED DISCHARGE INSTRUCTIONS ---
Patient: ELI HOFFMAN General Instructions [facility] VisitID: [id number] [place] [address] 66y, M Registration Date/Time: 03/15/2017 Bacterial and lobar pneumonia. Vital signs recorded and reviewed; empiric antibiotics given in the ED and prescribed. No hypoxemia, respiratory failure or sepsis. INSTRUCTIONS Rest at home today and tomorrow. Your Current Medications: STOP TAKING THE FOLLOWING MEDICATIONS: Carvedilol Phosphate ER Oral : Capsule Extended Release 24 Hour 10 mg, 25mg daily. Furosemide Oral : Tablet 40 mg, daily. CONTINUE TAKING THE FOLLOWING MEDICATIONS: Atenolol Oral : Tablet 100 mg, daily. Better melon gold*. Glipizide Oral : Tablet 5 mg, daily. Lisinopril Oral : Tablet 10 mg, 2x a day. Omeprazole Oral : Tablet Delayed Release 20 mg, daily. Simvastatin Oral : Tablet 40 mg, daily. Prescription Medications: Clarithromycin 500 mg tablets: take 1 tablet orally every 12 hours for 7 days. No refills. Follow-up: Follow up with your doctor in about three days. Call for an appointment. Blood pressure screening was not performed during this visit because the patient has an active diagnosis of hypertension. ADDITIONAL INFORMATION Pneumonia (Adult) Pneumonia is an infection deep within the lung, in the small air sacs (alveoli). It may be due to a virus or bacteria and is usually treated with an antibiotic. Severe cases require treatment in the hospital. Milder cases can be treated at home. Symptoms usually start to improve during the first2 days of treatment. Home Care: Rest at home for the first 23 days or until you feel stronger. When resuming activity, dont let yourself become overly tired. Avoid exposure to cigarette smoke (yours or others). You may use acetaminophen (Tylenol) or ibuprofen (Motrin, Advil) to control fever or pain, unless another medicine was prescribed. [NOTE: If you have chronic liver or kidney disease or ever had a stomach ulcer or GI bleeding, talk with your doctor before using these medicines.] (Aspirin should never be used in anyone under 18 years of age who is ill with a fever. It may cause severe liver damage.) Your appetite may be poor so a light diet is fine. Keep well hydrated by drinking 68 glasses of fluids per day (water, sport drinks such as Gatorade, sodas without caffeine, juices, tea, soup, etc.). This will help loosen secretions in the lung, making it easier for you to cough up the phlegm (sputum). If you also have heart or kidney disease, check with your doctor before you drink extra amounts of fluids. Finish all antibiotic medicine prescribed, even if you are feeling better after a few days. Follow Up with your doctor in the next 23 days (or as advised) to be sure you are responding properly to the medicine. [NOTE: If you are age 65 or older, or if you have chronic lung disease (asthma, emphysema or COPD), we recommendthe pneumococcal vaccination and a yearlyinfluenzavaccination(flu-shot) every . Ask your doctor about this.] Get Prompt Medical Attention if any of the following occur: Not getting better within the first 48 hours of treatment Increasing shortness of breath or rapid breathing (over 25 breaths/minute) Coughing up blood or increasing chest pain with breathing Fever of 100.4F (38C) oral or higher, not better with fever medication Increasing weakness, dizziness or fainting Increasing thirst or dry mouth Sinus pain, headache or a stiff neck Chest pain not caused by coughing Clarithromycin Oral tablet What is this medicine? CLARITHROMYCIN (zachsingh VIJAYJason connielaurence gee sin) is a macrolide antibiotic. It is used to treat or prevent certain kinds of bacterial infections. It will not work for colds, flu, or other viral infections. How should I use this medicine? Take this medicine by mouth with glass of water. If it upsets your stomach you can take it with milk or food. Follow the directions on the prescription label. Take your medicine at regular intervals. Do not take your medicine more often than directed. Take all of your medicine as directed even if you think your are better. Do not skip doses or stop your medicine early. Talk to your molder setter regarding the use of this medicine in children. Special care may be needed. What side effects may I notice from receiving this medicine? Side effects that you should report to your doctor or health child adolescent care as soon as possible: allergic reactions like skin rash, itching or hives, swelling of the face, lips, or tongue irregular heartbeat or chest pain pain or difficulty passing urine redness, blistering, peeling or loosening of the skin, including inside the mouth yellowing of the eyes or skin Side effects that usually do not require medical attention (report to your doctor or health child adolescent care if they continue or are bothersome): abnormal taste anxiety, confusion, or nightmares diarrhea headache intestinal gas stomach upset or nausea What may interact with this medicine? carbamazepine cisapride colchicine cyclosporine digoxin medicines for fungal infections like fluconazole, ketoconazole and itraconazole medicines for sleep or anxiety like alprazolam or triazolam some medicines for headaches like ergotamine or dihydroergotamine some medicines for high cholesterol like atorvastatin, lovastatin, simvastatin some medicines for irregular heart rhythm like amiodarone, disopyramide, dofetilide, flecainide, procainamide, quinidine omeprazole other antibiotics like grepafloxacin or sparfloxacin pimozide rifabutin ritonavir sildenafil terfenadine theophylline warfarin zidovudine What if I miss a dose? If you miss a dose, take it as soon as you can. If it is almost time for your next dose, take only that dose. Do not take double or extra doses. Where should I keep my medicine? Keep out of the reach of children. Store at room temperature between 20 and 25 degrees C (68 and 77 degrees F). Keep container tightly closed. Protect from light. Throw away any unused medicine after the expiration date. What should I tell my health care provider before I take this medicine? They need to know if you have any of these conditions: bowel disease, like colitis irregular heartbeat or heart disease kidney disease liver disease an unusual or allergic reaction to clarithromycin, other macrolide antibiotics, other medicines, foods, dyes, or preservatives or trying to get breast-feeding What should I watch for while using this medicine? Tell your doctor or health child adolescent care if your symptoms do not improve. Do not treat diarrhea with over the counter products. Contact your doctor if you have diarrhea that lasts more than 2 days or if it is severe and watery. If you have diabetes, monitor your blood sugar carefully while on this medicine. You have been given the following additional information: Pneumonia (Adult) Clarithromycin Oral tablet Rest at home today and tomorrow. (Electronically signed by River Chappell Dr. 03/16/2017 7:56)
--- NOTE | 2017-03-16 07:57 | ED MAR SUMMARY ---
..... Medication Administration Record [facility] [address] [place] [address] Patient: ELI HOFFMAN Visit ID: [id number] 66y, M Weight: 99.7 kg Height/Length: 69 in BMI: 32.5 ALLERGIES: None Start 21:26 03/15/2017 James Luna R.N., Stop 21:48 03/15/2017 Ashanti Mendez R.N. Medication Administered: CEFTRIAXONE [IVPB], Dose: 2 gm IVPB over 20 minute(s), Rate: 150 mL/hr, Dispensed: 50 mL bag, Site: #1 left hand. Medication Ordered: Ceftriaxone IV 2 gm/50mL (NOW). Start 22:01 03/15/2017 Ashanti Mendez R.N., Stop 23:28 03/15/2017 Ashanti Mendez R.N. Medication Administered: AZITHROMYCIN [IVPB], Dose: 500 mg IVPB over 1 hour(s), Rate: 250 mg/hr, Dispensed: 250 mL bag, Site: #1 left hand. Medication Ordered: Azithromycin IV 500 mg/250 mL (NOW).
--- NOTE | 2017-03-16 07:57 | ED MED RECONCILIATION SUMMARY ---
Patient: ELI HOFFMAN Medication Reconciliation Report [facility] VisitID: [id number] [address] [place] [address] 66y, M Registration Date/Time: 03/15/2017 Weight: 99.7 kg Height/Length: 69 in. BMI: 32.5 ALLERGIES: None The patient's Home Medications are listed below: STOP TAKING THE FOLLOWING MEDICATIONS: Carvedilol Phosphate ER Oral (10 mg) 25mg, daily Furosemide Oral (40 mg), daily CONTINUE TAKING THE FOLLOWING MEDICATIONS: Atenolol Oral (100 mg), daily Better melon gold Glipizide Oral (5 mg), daily Lisinopril Oral (10 mg), 2x a day Omeprazole Oral (20 mg), daily Simvastatin Oral (40 mg), daily The source(s) of the original Home Medication information: Not obtained. The following Medications were given to the patient in the Emergency Department: Ceftriaxone [IVPB] IVPB bolus 0, then 2 gm 150 mL/hr, administered: 03/15/2017 9:26:00 PM Azithromycin [IVPB] IVPB bolus 0, then 500 mg 250 mg/hr, administered: 03/15/2017 10:01:00 PM The following Medications were prescribed to the patient: Clarithromycin 500 mg tablets: take 1 tablet orally every 12 hours for 7 days. No refills. -- River Chappell Dr.
--- NOTE | 2017-03-16 07:57 | ED DISCHARGE INSTRUCTIONS ---
Patient: ELI HOFFMAN General Instructions [facility] VisitID: [id number] [place] [address] 66y, M Registration Date/Time: 03/15/2017 Bacterial and lobar pneumonia. Vital signs recorded and reviewed; empiric antibiotics given in the ED and prescribed. No hypoxemia, respiratory failure or sepsis. INSTRUCTIONS Rest at home today and tomorrow. Your Current Medications: STOP TAKING THE FOLLOWING MEDICATIONS: Carvedilol Phosphate ER Oral : Capsule Extended Release 24 Hour 10 mg, 25mg daily. Furosemide Oral : Tablet 40 mg, daily. CONTINUE TAKING THE FOLLOWING MEDICATIONS: Atenolol Oral : Tablet 100 mg, daily. Better melon gold*. Glipizide Oral : Tablet 5 mg, daily. Lisinopril Oral : Tablet 10 mg, 2x a day. Omeprazole Oral : Tablet Delayed Release 20 mg, daily. Simvastatin Oral : Tablet 40 mg, daily. Prescription Medications: Clarithromycin 500 mg tablets: take 1 tablet orally every 12 hours for 7 days. No refills. Follow-up: Follow up with your doctor in about three days. Call for an appointment. Blood pressure screening was not performed during this visit because the patient has an active diagnosis of hypertension. ADDITIONAL INFORMATION Pneumonia (Adult) Pneumonia is an infection deep within the lung, in the small air sacs (alveoli). It may be due to a virus or bacteria and is usually treated with an antibiotic. Severe cases require treatment in the hospital. Milder cases can be treated at home. Symptoms usually start to improve during the first2 days of treatment. Home Care: Rest at home for the first 23 days or until you feel stronger. When resuming activity, dont let yourself become overly tired. Avoid exposure to cigarette smoke (yours or others). You may use acetaminophen (Tylenol) or ibuprofen (Motrin, Advil) to control fever or pain, unless another medicine was prescribed. [NOTE: If you have chronic liver or kidney disease or ever had a stomach ulcer or GI bleeding, talk with your doctor before using these medicines.] (Aspirin should never be used in anyone under 18 years of age who is ill with a fever. It may cause severe liver damage.) Your appetite may be poor so a light diet is fine. Keep well hydrated by drinking 68 glasses of fluids per day (water, sport drinks such as Gatorade, sodas without caffeine, juices, tea, soup, etc.). This will help loosen secretions in the lung, making it easier for you to cough up the phlegm (sputum). If you also have heart or kidney disease, check with your doctor before you drink extra amounts of fluids. Finish all antibiotic medicine prescribed, even if you are feeling better after a few days. Follow Up with your doctor in the next 23 days (or as advised) to be sure you are responding properly to the medicine. [NOTE: If you are age 65 or older, or if you have chronic lung disease (asthma, emphysema or COPD), we recommendthe pneumococcal vaccination and a yearlyinfluenzavaccination(flu-shot) every . Ask your doctor about this.] Get Prompt Medical Attention if any of the following occur: Not getting better within the first 48 hours of treatment Increasing shortness of breath or rapid breathing (over 25 breaths/minute) Coughing up blood or increasing chest pain with breathing Fever of 100.4F (38C) oral or higher, not better with fever medication Increasing weakness, dizziness or fainting Increasing thirst or dry mouth Sinus pain, headache or a stiff neck Chest pain not caused by coughing Clarithromycin Oral tablet What is this medicine? CLARITHROMYCIN (zachsingh VIJAYaJson connielaurence gee sin) is a macrolide antibiotic. It is used to treat or prevent certain kinds of bacterial infections. It will not work for colds, flu, or other viral infections. How should I use this medicine? Take this medicine by mouth with glass of water. If it upsets your stomach you can take it with milk or food. Follow the directions on the prescription label. Take your medicine at regular intervals. Do not take your medicine more often than directed. Take all of your medicine as directed even if you think your are better. Do not skip doses or stop your medicine early. Talk to your printing engineer regarding the use of this medicine in children. Special care may be needed. What side effects may I notice from receiving this medicine? Side effects that you should report to your doctor or health adult daycare coordinator as soon as possible: allergic reactions like skin rash, itching or hives, swelling of the face, lips, or tongue irregular heartbeat or chest pain pain or difficulty passing urine redness, blistering, peeling or loosening of the skin, including inside the mouth yellowing of the eyes or skin Side effects that usually do not require medical attention (report to your doctor or health adult daycare coordinator if they continue or are bothersome): abnormal taste anxiety, confusion, or nightmares diarrhea headache intestinal gas stomach upset or nausea What may interact with this medicine? carbamazepine cisapride colchicine cyclosporine digoxin medicines for fungal infections like fluconazole, ketoconazole and itraconazole medicines for sleep or anxiety like alprazolam or triazolam some medicines for headaches like ergotamine or dihydroergotamine some medicines for high cholesterol like atorvastatin, lovastatin, simvastatin some medicines for irregular heart rhythm like amiodarone, disopyramide, dofetilide, flecainide, procainamide, quinidine omeprazole other antibiotics like grepafloxacin or sparfloxacin pimozide rifabutin ritonavir sildenafil terfenadine theophylline warfarin zidovudine What if I miss a dose? If you miss a dose, take it as soon as you can. If it is almost time for your next dose, take only that dose. Do not take double or extra doses. Where should I keep my medicine? Keep out of the reach of children. Store at room temperature between 20 and 25 degrees C (68 and 77 degrees F). Keep container tightly closed. Protect from light. Throw away any unused medicine after the expiration date. What should I tell my health care provider before I take this medicine? They need to know if you have any of these conditions: bowel disease, like colitis irregular heartbeat or heart disease kidney disease liver disease an unusual or allergic reaction to clarithromycin, other macrolide antibiotics, other medicines, foods, dyes, or preservatives or trying to get breast-feeding What should I watch for while using this medicine? Tell your doctor or health adult daycare coordinator if your symptoms do not improve. Do not treat diarrhea with over the counter products. Contact your doctor if you have diarrhea that lasts more than 2 days or if it is severe and watery. If you have diabetes, monitor your blood sugar carefully while on this medicine. You have been given the following additional information: Pneumonia (Adult) Clarithromycin Oral tablet Rest at home today and tomorrow. (Electronically signed by River Chappell Dr. 03/16/2017 7:56)
== END 2017-03-15 23:30 | disposition home or self-care (01) ==
LOC: ED SRH 19:39
DX: J15.9 Unspecified bacterial pneumonia (principal); E78.5 Hyperlipidemia, unspecified; I10 Essential (primary) hypertension; E11.9 Type 2 diabetes mellitus without complications; Z79.899 Other long term (current) drug therapy
CPT/HCPCS: 90004; 90074; 90100; 90616; 91320; 94060; 95059